=== PATIENT | female | born 1940 | race African-American/Black ===

== ENCOUNTER 2022-01-31 12:39 | Emergency (ER) | payer MEDICARE ==
[2022-01-31 14:34] LABS: ALT (SGPT) 22 U/L (8-55); Albumin 3.2 g/dL (3.4-4.8); Alkaline Phosphatase 101 U/L (40-110); Anion Gap 16 mmol/L (10-20); BUN (Urea Nitrogen) 8 mg/dL (9.8-20.1); Bilirubin, Total 0.9 mg/dL (0.2-1.2); Calc. Creatinine Clearance 0 mL/min (70-130); Calcium 8.8 mg/dL (7.8-10.44); Carbon Dioxide 25 mmol/L (23-31); Chloride 104 mmol/L (98-107); Globulin 3.6 g/dL (2.4-3.5); Glucose 113 mg/dL (83-110); Hemoglobin 12.1 g/dL (12.0-16.0); Mean Corpuscular HGB CONC 32.8 g/dL (32.0-36.0); Mean Corpuscular Hemoglobin 31.4 pg (27.0-31.0); Mean Corpuscular Volume 95.9 fL (78.0-98.0); Mean Platelet Volume 6.7 fL (7.4-10.4); Platelet Count 182 thou/uL (130-400); Potassium 4.2 mmol/L (3.5-5.1); Protein, Total 6.8 g/dL (5.8-8.1); RBC Distribution Width 12.4 % (11.5-14.5); Red Blood Cell (RBC) Count 3.86 mill/uL (4.20-5.40); Sodium 141 mmol/L (136-145); White Blood Cell (WBC) Count 7.3 thou/uL (4.8-10.8)
[2022-01-31 14:38] LABS: Band 8 % (5-11); Eosinophils 1 % (0-10); Lymphocytes 9 % (21-51); MDiff Complete? YES; Monocytes 12 % (0-10); Neutrophil 65 % (42-75); Reactive Lymphocytes 3 % (0-10)
[2022-01-31 15:01] LABS: AST (SGOT) 43 U/L (5-34)
[2022-01-31] MEDS ORDERED: Ketorolac Tromethamine 30 MG/ML VIAL ONE (16:06)
[2022-01-31] MEDS ORDERED: Fentanyl 100 MCG/2 ML VIAL ONE (16:06)
[2022-01-31] MEDS ORDERED: Ondansetron PF 4 MG/2 ML Vial ONE (16:06)
== END 2022-01-31 18:56 | disposition short-term general hospital (02) ==
LOC: BURERS 12:39
DX: S72.002A Fracture of unspecified part of neck of left femur, initial encounter for closed fracture (principal); S62.323A Displaced fracture of shaft of third metacarpal bone, left hand, initial encounter for closed fracture; Z20.822 Contact with and (suspected) exposure to COVID-19; I10 Essential (primary) hypertension; E78.5 Hyperlipidemia, unspecified; F17.210 Nicotine dependence, cigarettes, uncomplicated; W19.XXXA Unspecified fall, initial encounter
CPT/HCPCS: 26600; 80053; 85025; 96374; 96375; J1885; J2405; J3010; U0003; U0005

== ENCOUNTER 2022-02-06 10:19 | Inpatient (IN) | payer MEDICARE, OTHER ==
[2022-02-06 18:21] VITALS: BMI 22.6
[2022-02-06] MEDS ORDERED: traMADol HCl 50 MG TAB PO PRN (20:21)
[2022-02-06] MEDS ORDERED: Cyclobenzaprine 10 MG TAB PO PRN (20:21)
[2022-02-06] MEDS: Nicotine 21 MG PATCH TD SCH (21:36)
[2022-02-06] MEDS: Metoprolol Tartrate 25 MG TAB PO SCH (21:45)
[2022-02-06] MEDS: metFORMIN 500 MG TAB PO SCH (21:46)
[2022-02-06] MEDS: Donepezil HCl 10 MG TAB PO SCH (21:46)
[2022-02-06] MEDS: Atorvastatin Calcium 40 MG TAB PO SCH (21:46)
[2022-02-06] MEDS: Aspirin 81 mg Enteric Coated Tablet PO SCH (21:46)
[2022-02-06] MEDS: Famotidine 20 MG TAB PO SCH (21:46)
[2022-02-07] MEDS: Acetaminophen 500 MG TAB PO SCH ×5 (00:15→23:38)
[2022-02-07] MEDS: Aspirin 81 mg Enteric Coated Tablet PO SCH ×2 (09:06→21:21)
[2022-02-07] MEDS: metFORMIN 500 MG TAB PO SCH ×2 (09:06→21:19)
[2022-02-07] MEDS: Famotidine 20 MG TAB PO SCH ×2 (09:06→21:20)
[2022-02-07] MEDS: Metoprolol Tartrate 25 MG TAB PO SCH ×2 (09:06→21:21)
[2022-02-07] MEDS: Lisinopril 5 MG TAB PO SCH (09:07)
[2022-02-07] MEDS: Donepezil HCl 10 MG TAB PO SCH (21:19)
[2022-02-07] MEDS: Atorvastatin Calcium 40 MG TAB PO SCH (21:21)
[2022-02-07] MEDS: Nicotine 21 MG PATCH TD SCH (21:24)
[2022-02-08] MEDS: Acetaminophen 500 MG TAB PO SCH ×4 (05:18→23:57)
[2022-02-08] MEDS: metFORMIN 500 MG TAB PO SCH ×2 (09:30→21:36)
[2022-02-08] MEDS: Famotidine 20 MG TAB PO SCH ×2 (09:31→21:36)
[2022-02-08] MEDS: Lisinopril 5 MG TAB PO SCH (09:31)
[2022-02-08] MEDS: Metoprolol Tartrate 25 MG TAB PO SCH ×2 (09:32→21:36)
[2022-02-08] MEDS: Aspirin 81 mg Enteric Coated Tablet PO SCH ×2 (09:33→21:36)
[2022-02-08] MEDS: Donepezil HCl 10 MG TAB PO SCH (21:35)
[2022-02-08] MEDS: Nicotine 21 MG PATCH TD SCH (21:35)
[2022-02-08] MEDS: Atorvastatin Calcium 40 MG TAB PO SCH (21:36)
[2022-02-09] MEDS: Acetaminophen 500 MG TAB PO SCH ×3 (05:10→17:23)
[2022-02-09] MEDS: Famotidine 20 MG TAB PO SCH ×2 (09:36→20:56)
[2022-02-09] MEDS: Metoprolol Tartrate 25 MG TAB PO SCH ×2 (09:37→20:56)
[2022-02-09] MEDS: metFORMIN 500 MG TAB PO SCH ×2 (09:37→20:56)
[2022-02-09] MEDS: Aspirin 81 mg Enteric Coated Tablet PO SCH ×2 (09:37→20:56)
[2022-02-09] MEDS: Lisinopril 5 MG TAB PO SCH (09:37)
[2022-02-09] MEDS: Nicotine 21 MG PATCH TD SCH (20:56)
[2022-02-09] MEDS: Atorvastatin Calcium 40 MG TAB PO SCH (20:56)
[2022-02-09] MEDS: Donepezil HCl 10 MG TAB PO SCH (20:56)
[2022-02-10] MEDS: Acetaminophen 500 MG TAB PO SCH ×4 (00:23→17:27)
[2022-02-10] MEDS: metFORMIN 500 MG TAB PO SCH ×2 (08:37→20:54)
[2022-02-10] MEDS: Lisinopril 5 MG TAB PO SCH (08:37)
[2022-02-10] MEDS: Aspirin 81 mg Enteric Coated Tablet PO SCH ×2 (08:37→20:54)
[2022-02-10] MEDS: Metoprolol Tartrate 25 MG TAB PO SCH ×2 (08:38→20:54)
[2022-02-10] MEDS: Famotidine 20 MG TAB PO SCH ×2 (08:39→20:54)
[2022-02-10] MEDS: Donepezil HCl 10 MG TAB PO SCH (20:55)
[2022-02-10] MEDS: Nicotine 21 MG PATCH TD SCH (20:55)
[2022-02-10] MEDS: Atorvastatin Calcium 40 MG TAB PO SCH (20:55)
[2022-02-11] MEDS: Acetaminophen 500 MG TAB PO SCH ×4 (00:14→17:28)
[2022-02-11] MEDS: Lisinopril 5 MG TAB PO SCH (08:57)
[2022-02-11] MEDS: Aspirin 81 mg Enteric Coated Tablet PO SCH ×2 (08:58→21:54)
[2022-02-11] MEDS: metFORMIN 500 MG TAB PO SCH ×2 (08:58→21:54)
[2022-02-11] MEDS: Metoprolol Tartrate 25 MG TAB PO SCH ×2 (08:58→21:54)
[2022-02-11] MEDS: Famotidine 20 MG TAB PO SCH ×2 (08:58→21:54)
[2022-02-11] MEDS: Atorvastatin Calcium 40 MG TAB PO SCH (21:54)
[2022-02-11] MEDS: Donepezil HCl 10 MG TAB PO SCH (21:54)
[2022-02-11] MEDS: Nicotine 21 MG PATCH TD SCH (21:55)
[2022-02-12] MEDS: Acetaminophen 500 MG TAB PO SCH ×4 (00:21→17:23)
[2022-02-12] MEDS: metFORMIN 500 MG TAB PO SCH ×2 (08:33→20:58)
[2022-02-12] MEDS: Metoprolol Tartrate 25 MG TAB PO SCH ×2 (08:33→20:59)
[2022-02-12] MEDS: Aspirin 81 mg Enteric Coated Tablet PO SCH ×2 (08:33→20:59)
[2022-02-12] MEDS: Lisinopril 5 MG TAB PO SCH (08:33)
[2022-02-12] MEDS: Famotidine 20 MG TAB PO SCH ×2 (08:33→20:59)
[2022-02-12] MEDS: Atorvastatin Calcium 40 MG TAB PO SCH (20:59)
[2022-02-12] MEDS: Donepezil HCl 10 MG TAB PO SCH (20:59)
[2022-02-12] MEDS: Nicotine 21 MG PATCH TD SCH (21:06)
[2022-02-13] MEDS: Acetaminophen 500 MG TAB PO SCH ×4 (00:20→17:16)
[2022-02-13] MEDS: Famotidine 20 MG TAB PO SCH ×2 (08:35→21:36)
[2022-02-13] MEDS: Metoprolol Tartrate 25 MG TAB PO SCH ×2 (08:35→21:36)
[2022-02-13] MEDS: Lisinopril 5 MG TAB PO SCH (08:36)
[2022-02-13] MEDS: metFORMIN 500 MG TAB PO SCH ×2 (08:36→21:36)
[2022-02-13] MEDS: Aspirin 81 mg Enteric Coated Tablet PO SCH ×2 (08:36→21:36)
[2022-02-13] MEDS: Donepezil HCl 10 MG TAB PO SCH (21:36)
[2022-02-13] MEDS: Atorvastatin Calcium 40 MG TAB PO SCH (21:36)
[2022-02-13] MEDS: Nicotine 21 MG PATCH TD SCH (21:43)
[2022-02-14] MEDS: Acetaminophen 500 MG TAB PO SCH ×4 (05:30→17:32)
[2022-02-14] MEDS: Metoprolol Tartrate 25 MG TAB PO SCH ×2 (09:07→22:03)
[2022-02-14] MEDS: Lisinopril 5 MG TAB PO SCH (09:07)
[2022-02-14] MEDS: Famotidine 20 MG TAB PO SCH ×2 (09:09→22:03)
[2022-02-14] MEDS: metFORMIN 500 MG TAB PO SCH ×2 (09:09→22:03)
[2022-02-14] MEDS: Aspirin 81 mg Enteric Coated Tablet PO SCH ×2 (09:09→22:03)
[2022-02-14] MEDS: Atorvastatin Calcium 40 MG TAB PO SCH (22:02)
[2022-02-14] MEDS: Donepezil HCl 10 MG TAB PO SCH (22:02)
[2022-02-14] MEDS: Nicotine 21 MG PATCH TD SCH (22:03)
[2022-02-15] MEDS: Acetaminophen 500 MG TAB PO SCH (00:09)
[2022-02-15 05:13] VITALS: TEMP 97.7
[2022-02-15] MEDS: Aspirin 81 mg Enteric Coated Tablet PO SCH (09:34)
[2022-02-15] MEDS: metFORMIN 500 MG TAB PO SCH (09:34)
[2022-02-15] MEDS: Famotidine 20 MG TAB PO SCH (09:34)
[2022-02-15] MEDS: Metoprolol Tartrate 25 MG TAB PO SCH (09:36)
[2022-02-15] MEDS: Lisinopril 5 MG TAB PO SCH (09:37)
[2022-02-15 09:38] VITALS: BP 147/52
== END 2022-02-15 17:35 | disposition home or self-care (01) | DRG 561 ==
LOC: BURMED 18:00
PROVIDERS: ADMIT Family Medicine; ATTEND Family Medicine
DX: S72.002D Fracture of unspecified part of neck of left femur, subsequent encounter for closed fracture with routine healing (principal); Z20.822 Contact with and (suspected) exposure to COVID-19; I10 Essential (primary) hypertension; W18.30XD Fall on same level, unspecified, subsequent encounter; F03.90 Unspecified dementia, unspecified severity, without behavioral disturbance, psychotic disturbance, mood disturbance, and anxiety; E78.5 Hyperlipidemia, unspecified; Z87.891 Personal history of nicotine dependence; S62.305D Unspecified fracture of fourth metacarpal bone, left hand, subsequent encounter for fracture with routine healing
CPT/HCPCS: 36416; U0003; U0005